=== PATIENT | male | born 1965 | race Caucasian/White ===

== ENCOUNTER 2024-02-16 12:33 | Outpatient (CLI) | payer OTHER | END 2024-02-16 12:34 | disposition home or self-care (01) | LOC: CSHULT 12:33 | PROVIDERS: ATTEND Family Medicine | DX: R31.0 Gross hematuria (principal); Z87.442 Personal history of urinary calculi; Z98.890 Other specified postprocedural states; N42.89 Other specified disorders of prostate | CPT/HCPCS: 76856 ==

== ENCOUNTER 2024-06-08 13:58 | Outpatient (CLI) | payer OTHER | END 2024-06-08 13:59 | disposition home or self-care (01) | LOC: CSHCP 13:58 | PROVIDERS: ATTEND Internal Medicine | DX: R06.09 Other forms of dyspnea (principal) | CPT/HCPCS: 94060; 94618; 94664; 94726; 94729 ==

== ENCOUNTER 2024-06-14 08:23 | Outpatient (CLI) | payer OTHER | END 2024-06-14 08:24 | disposition home or self-care (01) | LOC: CSHSLEEP 08:23 | PROVIDERS: ATTEND Internal Medicine | DX: G47.33 Obstructive sleep apnea (adult) (pediatric) (principal) | CPT/HCPCS: 95800 ==